=== PATIENT | male | born 1985 | race Caucasian/White ===

== ENCOUNTER 2018-06-28 15:54 | Emergency (ER) | payer OTHER ==
[~2018-06-28] VITALS: Ht 160 cm; Wt 89.0 kg
[2018-06-28 15:58] VITALS: BP 148/88
[2018-06-28] MEDS ORDERED: AMOXICILLIN 50500 MG PO (16:20)
[2018-06-28] MEDS ORDERED: NORCO 5-325 TA1 EACH PO (16:20)
== END 2018-06-28 16:29 | disposition home or self-care (01) ==
LOC: M.ERS 15:54
DX: K04.7 Periapical abscess without sinus (principal)